=== PATIENT | female | born 1955 | race Asian ===

== ENCOUNTER 2018-01-25 05:45 | Inpatient (IN) | END 2018-01-27 17:45 | disposition home or self-care (01) | DRG 743 ==

== ENCOUNTER 2018-08-26 22:23 | Emergency (ER) | payer OTHER ==
[~2018-08-26] VITALS: Wt 61.4 kg
[~2018-08-26 22:23] MED LIST: AMLO-147 PO; CARV12.579 PO; GEMF600T PO; LISI-471 PO
[2018-08-26] MEDS ORDERED: SOD CHLORIDE 0.9% 1,000 ML IV STA (22:47)
[2018-08-26] MEDS ORDERED: KETOROLAC 15 MG INJ IV STA (22:47)
[2018-08-27] MEDS ORDERED: TRAM50TA2 PO (00:07)
[2018-08-27] MEDS ORDERED: IBUP-1561 PO (00:07)
--- NOTE | 2018-08-27 00:11 | ERD ---
ER Documentation Chief Complaint Chief Complaint L KNEE PAIN S/P FALL HPI 63-year-old female presents with left knee pain after falling at home today. Family is concerned because she is been falling frequently. She gets wobbly according to family, possibly due to pain in her knee and back.. She has pain in her lower back and left knee. She had a physical approximately 3 months ago. She denies any dizziness, headache, vomiting, chest pain, shortness of breath, fevers. ROS All systems reviewed and are negative except as per history of present illness. Medications Home Meds Active Scripts Tramadol HCl (Tramadol HCl) 50 Mg Tablet, 50 MG PO Q4 PRN for PAIN, #16 TAB Prov:ALAN MIRELES MD 08/27/18 Ibuprofen* (Motrin*) 400 Mg Tab, 400 MG PO Q6, #20 TAB Prov:ALAN MIRELES MD 08/27/18 Reported Medications Gemfibrozil* (Lopid*) 600 Mg Tablet, 600 MG PO BID, TAB 01/24/18 Amlodipine Besylate* (Amlodipine Besylate*) 10 Mg Tablet, 10 MG PO DAILY, #30 TAB 01/24/18 Carvedilol* (Carvedilol*) 12.5 Mg Tablet, 12.5 MG PO BID, #60 TAB 01/24/18 Lisinopril* (Lisinopril*) 20 Mg Tablet, 20 MG PO DAILY, #30 TAB 01/24/18 Allergies Allergies: Coded Allergies: No Known Allergy (Unverified , 01/25/18) PMhx/Soc Medical and Surgical Hx: pt denies Medical Hx History of Surgery: Yes (Hysterectomy) Anesthesia Reaction: No Hx Neurological Disorder: No Hx Respiratory Disorders: No Hx Cardiac Disorders: Yes (HTN, Hyperlipidemia) Hx Psychiatric Problems: No Hx Miscellaneous Medical Probl: No Hx Alcohol Use: No Hx Substance Use: No Hx Tobacco Use: No Smoking Status: Never smoker FmHx Family History: No diabetes, No coronary disease, No other Physical Exam Vitals Vital Signs Date Temp Pulse Resp B/P (MAP) Pulse Ox O2 O2 Flow FiO2 Time Delivery Rate 08/27/18 97.9 80 18 132/80 99 Room Air 00:50 (97) 08/26/18 97.4 85 18 134/70 99 22:27 (91) Physical Exam Const: No acute distress Head: Atraumatic Eyes: Normal Conjunctiva ENT: Normal External Ears, Nose and Mouth. Neck: Full range of motion. No meningismus. Resp: Clear to auscultation bilaterally Cardio: Regular rate and rhythm, no murmurs Abd: Soft, non tender, non distended. Normal bowel sounds Skin: No petechiae or rashes Back: No midline or flank tenderness. Mild tenderness diffusely in the lower L4-L5 area without bony tenderness or deformities. Ext: No cyanosis, or edema. Generalized tenderness of the left anterior knee without warmth, erythema. No calf swelling or Homans sign. No deformities. No deficits appreciated. Neur: Awake and alert Psych: Normal Mood and Affect Result Diagram: 08/26/18225508/26/182255 Results 24 hrs Laboratory Tests Test 08/26/18 22:56 08/26/18 23:40 White Blood Count 8.2 10^3/ul Red Blood Count 4.28 10^6/ul Hemoglobin 12.7 g/dl Hematocrit 36.5 % Mean Corpuscular Volume 85.3 fl Mean Corpuscular Hemoglobin 29.7 pg Mean Corpuscular Hemoglobin Concent 34.8 g/dl Red Cell Distribution Width 12.6 % Platelet Count 321 10^3/UL Mean Platelet Volume 8.6 fl Immature Granulocytes % 0.200 % Neutrophils % 64.5 % Lymphocytes % 23.6 % Monocytes % 5.6 % Eosinophils % 5.6 % Basophils % 0.5 % Nucleated Red Blood Cells % 0.0 /100WBC Immature Granulocytes # 0.020 10^3/ul Neutrophils # 5.3 10^3/ul Lymphocytes # 1.9 10^3/ul Monocytes # 0.5 10^3/ul Eosinophils # 0.5 10^3/ul Basophils # 0.0 10^3/ul Nucleated Red Blood Cells # 0.0 10^3/ul Sodium Level 143 mmol/L Potassium Level 4.5 mmol/L Chloride Level 106 mmol/L Carbon Dioxide Level 30 mmol/L Anion Gap 7 Blood Urea Nitrogen 19 mg/dl Creatinine 0.51 mg/dl Est Glomerular Filtrat Rate mL/min > 60 mL/min Glucose Level 125 mg/dl Calcium Level 9.7 mg/dl Total Bilirubin 0.3 mg/dl Direct Bilirubin 0.00 mg/dl Indirect Bilirubin 0.3 mg/dl Aspartate Amino Transf (AST/SGOT) 40 IU/L Alanine Aminotransferase (ALT/SGPT) 18 IU/L Alkaline Phosphatase 93 IU/L Total Protein 8.9 g/dl Albumin 4.8 g/dl Globulin 4.10 g/dl Albumin/Globulin Ratio 1.17 Lipase 219 U/L Urine Color COLORLESS Urine Clarity SLIGHTLY CLOUDY Urine pH 5.0 Urine Specific Cobb 1.003 Urine Ketones NEGATIVE mg/dL Urine Nitrite NEGATIVE mg/dL Urine Bilirubin NEGATIVE mg/dL Urine Urobilinogen NEGATIVE mg/dL Urine Leukocyte Esterase TRACE Bradley/ul Urine Microscopic RBC 0 /HPF Urine Microscopic WBC 2 /HPF Urine Squamous Epithelial Cells FEW /HPF Urine Bacteria FEW /HPF Urine Hemoglobin 1+ mg/dL Urine Glucose NEGATIVE mg/dL Urine Total Protein NEGATIVE mg/dl Current Medications Medications Dose Sig/Graham Start Time Status Last (Trade) Ordered Route PRN Stop Time Admin Dose Reason Admin Sodium 1,000 ml @ Q1H STAT 08/26/18 DC 08/26/18 Chloride 1,000 mls/hr IV 22:47 08/26/18 22:59 23:46 Ketorolac 15 mg ONCE STAT 08/26/18 DC 08/26/18 Tromethamine IV 22:47 08/26/18 22:58 (Toradol) 22:49 Procedures/MDM X-ray Knee 3V Interpreted by me: Bones: No fracture Joints: No dislocation Foreign body: None impression-tricompartmental generative changes X-ray LS-Spine 3V Interpreted by me: Bones: No fracture, or lytic lesions Joints: No dislocation Foreign body: None. Impression-degenerative changes lumbar spine. Chest X-ray 1V Interpreted by me: Soft Tissue: No acute abnormalities Bones: No acute abnormalities Mediastinum/Cardiac Silhouette/Lungs: No acute abnormalities. Impression-no acute findings on 1 view chest x-ray CBC and CMP showed no acute abnormalities. Urine shows no sign of infection or additional significant acute abnormalities. Patient was given 1 L normal saline IV, Toradol 15 mg IV. Patient presents with left knee pain and low back pain after recent mechanical fall at home. Is no signs or symptoms of neurologic deficits, chest pain, shortness of breath, headache, additional concerning symptoms. She is a history of lethargy of uncertain etiology without significant emergent etiology identified. She will be treated with ibuprofen, tramadol, instructions for rest, orthopedic and primary care follow-up and return precautions. The patient was stable with no new complaints during the ER course. Clinically, there is no current evidence to suggest meningitis, sepsis, acute abdomen, pneumonia, stroke, acute coronary syndrome, pulmonary embolism, aortic dissection or any other emergent condition appearing to require further evaluation or hospitalization. Patient counseled regarding my diagnostic imp ression and care plan. Prior to discharge all questions answered. Pt agrees with treatment plan and understands strict return precautions. Pt is instructed to follow up with primary care provider within 24-48 hours. Precautionary instructions provided including instructions to return to the ER if not improving or for any worsening or changing symptoms or concerns. Departure Diagnosis: Primary Impression: Knee pain Chronicity: acute Laterality: left Qualified Codes: M25.562 - Pain in left knee Condition: Stable Patient Instructions: Knee Sprain, Weakness, Unk Cause Referrals: [facility] (PCP) ROSEANNA CAI MD Additional Instructions: There are findings of arthritis on x-ray of knee and back. Additional examinations normal today. See primary doctor for follow-up. Recheck otherwise for fevers, new symptoms. See orthopedist for further evaluation and treatment. ALAN MIRELES MD Aug 27, 2018 00:11
[2018-08-27 00:50] VITALS: BP 132/80; PULSE 80; RESP 18
== END 2018-08-27 00:45 | disposition home or self-care (01) ==
LOC: FTE 22:23
DX: M25.562 Pain in left knee (principal); I10 Essential (primary) hypertension
CPT/HCPCS: 29505; 36415; 71045; 72100; 73562; 80053; 81001; 83690; 85025; 96361; 96374; J1885; J7030; Z7502

== ENCOUNTER 2019-02-25 12:47 | Emergency (ER) | payer OTHER ==
[~2019-02-25] VITALS: Ht 152.4 cm; Wt 59.5 kg
[~2019-02-25 12:47] MED LIST changes: +CYCL10TA7 PO; +IBUP-1561 PO; +TRAM50TA2 PO
[2019-02-25 13:05] VITALS: BP 151/74; PULSE 68; RESP 18; Ht 152.4 cm; Wt 59.5 kg
[2019-02-25] MEDS ORDERED: KETOROLAC 30 MG INJ IM STA (14:15)
[2019-02-25] MEDS ORDERED: ONDANSETRON (ODT) 4 MG TAB ODT STA (14:15)
[2019-02-25] MEDS ORDERED: HYDROCODONE/APAP (5/325) TAB PO ONE (14:30)
--- NOTE | 2019-02-25 14:50 | ERD ---
ER Documentation Chief Complaint Chief Complaint back pain x 6 months from a fall around may 2018 HPI 63-year-old female presents with low back pain for last 6 months. She had a mechanical fall around that time. She is under the care of her neurologist as well as primary doctor. She has MRI pending. She has pain rating to her bilateral lower extremities. She has occasional spasms of her left foot. Denies incontinence, fevers, flank pain, urinary complaints. She denies any new injury. She has pain primarily in the L4-L5 area where she points but also in t he upper back. She denies any cough, shortness of breath or chest pain. Patient is having pain despite ibuprofen ROS All systems reviewed and are negative except as per history of present illness. Medications Home Meds Active Scripts Cyclobenzaprine Hcl* (Cyclobenzaprine Hcl*) 10 Mg Tablet, 10 MG PO TID, #20 TAB Prov:ALAN MIRELES MD 02/25/19 Tramadol HCl (Tramadol HCl) 50 Mg Tablet, 50 MG PO Q4 PRN for PAIN, #20 TAB Prov:ALAN MIRELES MD 02/25/19 Tramadol HCl (Tramadol HCl) 50 Mg Tablet, 50 MG PO Q4 PRN for PAIN, #16 TAB Prov:ALAN MIRELES MD 08/27/18 Ibuprofen* (Motrin*) 400 Mg Tab, 400 MG PO Q6, #20 TAB Prov:ALAN MIRELES MD 08/27/18 Reported Medications Gemfibrozil* (Lopid*) 600 Mg Tablet, 600 MG PO BID, TAB 01/24/18 Amlodipine Besylate* (Amlodipine Besylate*) 10 Mg Tablet, 10 MG PO DAILY, #30 TAB 01/24/18 Carvedilol* (Carvedilol*) 12.5 Mg Tablet, 12.5 MG PO BID, #60 TAB 01/24/18 Lisinopril* (Lisinopril*) 20 Mg Tablet, 20 MG PO DAILY, #30 TAB 01/24/18 Allergies Allergies: Coded Allergies: No Known Allergy (Unverified , 01/25/18) PMhx/Soc History of Surgery: Yes (Hysterectomy) Anesthesia Reaction: No Hx Neurological Disorder: No Hx Respiratory Disorders: No Hx Cardiac Disorders: Yes (HTN, Hyperlipidemia) Hx Psychiatric Problems: No Hx Miscellaneous Medical Probl: No Hx Alcohol Use: No Hx Substance Use: No Hx Tobacco Use: No Smoking Status: Never smoker FmHx Family History: No diabetes, No coronary disease, No other Physical Exam Vitals Vital Signs Date Temp Pulse Resp B/P (MAP) Pulse Ox O2 O2 Flow FiO2 Time Delivery Rate 02/25/19 98.3 68 18 151/74 99 13:05 (99) Physical Exam Const: No acute distress Head: Atraumatic Eyes: Normal Conjunctiva ENT: Normal External Ears, Nose and Mouth. Neck: Full range of motion. No meningismus. Resp: Clear to auscultation bilaterally Cardio: Regular rate and rhythm, no murmurs Abd: Soft, non tender, non distended. Normal bowel sounds Skin: No petechiae or rashes Back: No midline or flank tenderness. Generalized tenderness around the L4-5 paraspinous area. Minimal tenderness in the upper thoracic area without bony tenderness or midline deformities. Ext: No cyanosis, or edema Neur: Awake and alert no appreciable focal neurologic deficits. Psych: Normal Mood and Affect Results 24 hrs Current Medications Medications Dose Sig/Graham Start Time Status Last (Trade) Ordered Route PRN Stop Time Admin Dose Reason Admin Ketorolac 30 mg ONCE STAT 02/25/19 DC 02/25/19 Tromethamine IM 14:15 02/25/19 14:31 (Toradol) 14:16 1 tab ONCE ONCE 02/25/19 DC 02/25/19 Acetaminophen PO 14:30 02/25/19 14:31 / 14:31 Hydrocodone Bitart ([place] (5/325)) Ondansetron 8 mg ONCE STAT 02/25/19 DC 02/25/19 HCl (Zofran ODT 14:15 02/25/19 14:28 Odt) 14:16 Procedures/MDM Patient presents with signs and symptoms of chronic low back pain and upper back pain related to a fall 6 months ago. She has no signs of acute injury. She has no signs or symptoms to suggest epidural abscess, cauda equina syndrome, deficits, ischemia or infection. Patient was given Toradol 30 mg IM as well as [place] 5 mg by mouth and Zofran. Patient will be treated with tramadol, Flexeril, continuation of ibuprofen, recommendations for continued primary care and neurology follow-up. The patient was stable with no new complaints during the ER course. Clinically, there is no current evidence to suggest meningitis, sepsis, acute abdomen, pneumonia, stroke, acute coronary syndrome, pulmonary embolism, aortic dissection or any other emergent condition appearing to require further evaluation or hospitalization. Patient counseled regarding my diagnostic impression and care plan. Prior to discharge all questions answered. Pt agrees with treatment plan and understands strict return precautions. Pt is instructed to follow up with primary care provider within 24-48 hours. Precautionary instructions provided including instructions to return to the ER i f not improving or for any worsening or changing symptoms or concerns. Disclaimer: Inadvertent spelling and grammatical errors are likely due to EHR/dictation software use and do not reflect on the overall quality of patient care. Also, please note that the electronic time recorded on this note does not necessarily reflect the actual time of the patient encounter. Departure Diagnosis: Primary Impression: Back pain Condition: Stable Patient Instructions: Back Pain (Acute Or Chronic) Referrals: [facility] (PCP) Additional Instructions: Neurologist and primary care doctor for further evaluation treatment of back pain. Recheck for fevers, vomiting, new or worsening symptoms. ALAN MIRELES MD Feb 25, 2019 14:50
== END 2019-02-25 16:11 | disposition home or self-care (01) ==
LOC: FTE 12:47
DX: M54.5 Low back pain (principal); I10 Essential (primary) hypertension
CPT/HCPCS: 96372; J1885; Z7502; Z7610